=== PATIENT | female | born 1985 | race Hispanic/Latino ===

== ENCOUNTER 2017-04-22 21:39 | Emergency (ER) | payer MEDICAID ==
[2017-04-22 21:39] VITALS: BMI 30.4
[2017-04-22 21:49] VITALS: TEMP 98.8
--- NOTE | 2017-04-22 22:21 | ED PDOC ---
Lower Extremity Pain/Injury Time Seen by Provider: 04/22/17 22:06 Chief Complaint (Nursing): Palpitations Chief Complaint (Provider): leg pain/swelling History Per: Patient History/Exam Limitations: no limitations Onset/Duration Of Symptoms: Days (2) Current Symptoms Are (Timing): Still Present Additional History Per: Patient Additional Complaint(s): 31 y/o female presents for eval of right leg pain x 2 days. Associated palpitations today, with numbness/tingling right hand 5th digit. Patient also feels her feet to be swollen. Denies fever, headache, dizziness, nausea/vomiting , chest pain, shortness of breath, abdominal pain, changes in bowel movements, recent travel, OCP use. Past Medical History Reviewed: Historical Data, Nursing Documentation, Vital Signs Vital Signs: Last Vital Signs Temp 98.8 F 04/22/17 21:47 Pulse 106 H 04/22/17 21:47 Resp 20 04/22/17 21:47 BP 156/93 H 04/22/17 21:47 Pulse Ox 98 04/22/17 21:47 - Medical History PMH: Anxiety, Bipolar Disorder, Depression, Migraine Denies: Diabetes, Hepatitis, HIV, HTN, Chronic Kidney Disease, Seizures, Sexually Transmitted Disease - Surgical History Surgical History: No Surg Hx - Family History Family History: States: Unknown Family Hx - Immunization History Hx Tetanus Toxoid Vaccination: No Hx Influenza Vaccination: No Hx Pneumococcal Vaccination: No - Home Medications Home Medications: Ambulatory Orders Medication Instructions Recorded Cetirizine HCl [All Day Allergy 1 tab PO HS 12/21/15 Relief] Fluticasone Nasal [Flonase] 1 spray INH PRN PRN 12/21/15 Paroxetine HCl [Paxil] 1 tab PO DAILY 12/21/15 Sumatriptan [Imitrex] 1 inh INH PRN PRN 12/21/15 buPROPion XL [Wellbutrin XL] 3 tab PO DAILY 12/21/15 Mirtazapine [Remeron] 15 mg PO HS PRN #15 tab 12/24/15 lamoTRIgine [Lamictal] 25 mg PO DAILY #30 tab 12/24/15 - Allergies Allergies/Adverse Reactions: Allergies Allergy/AdvReac Type Severity Reaction Status Date / Time clams Allergy Mild RASH Verified 04/22/17 21:46 hale Allergy Mild RASH Uncoded 12/21/15 09:49 Review of Systems ROS Statement: Except As Marked, All Systems Reviewed And Found Negative Cardiovascular: Positive for: Palpitations Musculoskeletal: Positive for: Leg Pain Neurological: Positive for: Numbness (right hand) Physical Exam - Reviewed Nursing Documentation Reviewed: Yes Vital Signs Reviewed: Yes - Physical Exam Appears: Positive for: Well, Non-toxic, Uncomfortable (anxious) Head Exam: Positive for: ATRAUMATIC, NORMAL INSPECTION, NORMOCEPHALIC Skin: Positive for: Normal Color Eye Exam: Positive for: Normal appearance ENT: Positive for: Normal ENT Inspection Cardiovascular/Chest: Positive for: Regular Rate, Rhythm Respiratory: Positive for: Normal Breath Sounds Gastrointestinal/Abdominal: Positive for: Normal Exam Back: Positive for: Normal Inspection Extremity: Positive for: Normal ROM, Tenderness (ecchymosis noted proximal right lower leg, distal right upper leg ), Capillary Refill. Negative for: Pedal Edema, Calf Tenderness (Neg damaris's bilaterally), Deformity, Swelling Neurologic/Psych: Positive for: Alert, Oriented. Negative for: Motor/Sensory Deficits - Laboratory Results Result Diagrams: 04/22/17 23:45 04/22/17 23:00 - ECG ECG: Positive for: Viewed By Me (reviewed by ED attending) ECG Rhythm: Positive for: Sinus Tachycardia (103bpm) O2 Sat by Pulse Oximetry: 98 - Progress ED Course And Treament: labs, ekg Patient educated on findings, discharged with instructions to follow up PMD 2-3 days. Advised motrin PRN pain. Return to ED for worsening/concerning symptoms. Disposition - Clinical Impression Clinical Impression: Leg pain, Palpitations, Paresthesia - Patient ED Disposition Is Patient to be Admitted: No Counseled Patient/Family Regarding: Studies Performed, Diagnosis, Need For Followup - Disposition Disposition: Routine/Home Disposition Time: 01:12 Condition: IMPROVED Additional Instructions: Follow up with primary doctor in 2-3 days. Take Ibuprofen as directed, as needed for pain. Return to ED for worsening/concerning symptoms. Instructions: Palpitations (ED), Paresthesia (ED), Leg Pain (ED)
[2017-04-22 23:25] LABS: ALB/GLOB RATIO 1.7 (1.0-2.1); ALBUMIN 4.4 g/dL (3.5-5.0); ALT/SGPT 61 U/L (9-52); AST/SGOT 38 U/L (14-36); BLOOD UREA NITROGEN 9 mg/dl (7-17); GFR AFRICAN-AMERICAN > 60; GFR NON-AFRICAN AMERICAN > 60
[2017-04-22 23:37] LABS: PARTIAL THROMBOPLASTIN TIME 22.8 Seconds (25.6-37.1); PROTHROMBIN TIME 10.9 Seconds (9.8-13.1)
[2017-04-22 23:45] LABS: B-TYPE NATRIURETIC PEPTIDE 66.7 pg/ml (0-450)
[2017-04-22 23:54] LABS: BASO % 0.3 % (0.0-2.0); EOS # 0.2 K/uL (0.0-0.7); EOS % 3.2 % (0.0-4.0); HEMOGLOBIN 12.4 g/dL (12.0-16.0); LYMPH # 1.5 K/uL (1.0-4.3); LYMPH % 24.5 % (20.0-40.0); MEAN CELL VOLUME 90.9 fl (81.0-99.0); MEAN CORPUSCULAR HEMOGLOBIN 30.1 pg (27.0-31.0); MEAN CORPUSCULAR HGB CONC 33.2 g/dL (33.0-37.0); MEAN PLATELET VOLUME 9.1 fl (7.2-11.7); MONO # 0.4 K/uL (0.0-0.8); MONO % 6.5 % (0.0-10.0); NEUT % 65.5 % (50.0-75.0); NRBC % 0.1 % (0.0-0.0); RBC 4.13 Mil/uL (3.80-5.20); RED CELL DISTRIBUTION WIDTH 13.8 % (11.5-14.5); WHITE BLOOD COUNT 6.2 K/uL (4.8-10.8)
[2017-04-23 02:36] VITALS: BP 148/97; PULSE 83; RESP 16; O2SAT 99
== END 2017-04-23 01:40 | disposition home or self-care (01) ==
LOC: H.ER 21:39
DX: F41.9 Anxiety disorder, unspecified (principal); R00.2 Palpitations; R20.2 Paresthesia of skin; F31.9 Bipolar disorder, unspecified

== ENCOUNTER 2017-05-21 05:01 | Observation (INO) | payer MEDICAID ==
[2017-05-21 05:01] VITALS: BMI 30.4
[2017-05-21 05:16] VITALS: O2SAT 98
[2017-05-21] MEDS ORDERED: Lidocaine 2% w Epi 1:100,000 Inj IJ ONE (05:17)
[2017-05-21] MEDS ORDERED: Lidocaine 1% Inj (20ml) ONE ×2 (05:18→05:30)
--- NOTE | 2017-05-21 06:44 | ED PDOC ---
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 Patient states she was drinking and holding a glass jar when she was passed out and fell cutting her leg. She reports on taking multiple sedative medications. PMD: None provided. - Fall Fall:Prior To Injury: Passed Out Past Medical History Reviewed: Historical Data, Nursing Documentation, Vital Signs Vital Signs: Last Vital Signs Temp 97.5 F L 05/21/17 09:11 Pulse 78 05/21/17 09:11 Resp 19 05/21/17 09:11 BP 128/76 05/21/17 09:11 Pulse Ox 98 05/21/17 09:11 - Medical History PMH: Anxiety, Bipolar Disorder, Depression, Migraine Denies: Diabetes, Hepatitis, HIV, HTN, Chronic Kidney Disease, Seizures, Sexually Transmitted Disease - Family History Family History: States: Unknown Family Hx - Immunization History Hx Tetanus Toxoid Vaccination: No Hx Influenza Vaccination: No Hx Pneumococcal Vaccination: No - Home Medications Home Medications: Ambulatory Orders Medication Instructions Recorded Cetirizine HCl [All Day Allergy 1 tab PO HS 12/21/15 Relief] Fluticasone Nasal [Flonase] 1 spray INH PRN PRN 12/21/15 Paroxetine HCl [Paxil] 1 tab PO DAILY 12/21/15 Sumatriptan [Imitrex] 1 inh INH PRN PRN 12/21/15 buPROPion XL [Wellbutrin XL] 3 tab PO DAILY 12/21/15 Mirtazapine [Remeron] 15 mg PO HS PRN #15 tab 12/24/15 lamoTRIgine [Lamictal] 25 mg PO DAILY #30 tab 12/24/15 Cephalexin [cephalexin] 500 mg PO BID #10 cap 05/21/17 - Allergies Allergies/Adverse Reactions: Allergies Allergy/AdvReac Type Severity Reaction Status Date / Time clams Allergy Mild RASH Verified 04/22/17 21:46 hale Allergy Mild RASH Uncoded 12/21/15 09:49 Review of Systems ROS Statement: Except As Marked, All Systems Reviewed And Found Negative Musculoskeletal: Positive for: Leg Pain (Right lower laceration) Physical Exam - Reviewed Nursing Documentation Reviewed: Yes Vital Signs Reviewed: Yes - Physical Exam Appears: Positive for: Well, No Acute Distress. Negative for: Non-toxic ( appears intoxicated ) Head Exam: Positive for: ATRAUMATIC, NORMAL INSPECTION, NORMOCEPHALIC Skin: Positive for: Normal Color, Warm, Dry Eye Exam: Positive for: EOMI, Normal appearance, PERRL ENT: Positive for: Normal ENT Inspection Neck: Positive for: Normal, Painless ROM Cardiovascular/Chest: Positive for: Regular Rate, Rhythm Respiratory: Positive for: CNT, Normal Breath Sounds Pulses-Dorsalis Pedis (L): 2+ Pulses-Dorsalis Pedis (R): 2+ Pulses-Femoral (L): 2+ Pulses-Femoral (R): 2+ Gastrointestinal/Abdominal: Positive for: Normal Exam, Bowel Sounds, Soft Back: Positive for: Normal Inspection Extremity: Positive for: Normal ROM (Full motor strenght on lower extremities), Other (9 cm laceratoin to adams. Linear superficial. Right lower extremity neurovascular intact.) Neurologic/Psych: Positive for: Alert, Oriented - ECG O2 Sat by Pulse Oximetry: 98 (RA) Pulse Ox Interpretation: Normal Medical Decision Making Medical Decision Making: Initial Impression: Laceration secondary to intoxication while taking sedative meds Initial plan: --Head w/o contrast [CT] --Alcohol --Lidocaine/Epinephrine --Accucheck --Tibia Fibula Right [RAD] Scribe Attestation: Documented by Leo Boo, acting as a scribe for Jerrell Garza MD. Provider Scribe Attestation: All medical record entries made by the Scribe were at my direction and personally dictated by me. I have reviewed the chart and agree that the record accurately reflects my personal performance of the history, physical exam, medical decision making, and the department course for this patient. I have also personally directed, reviewed, and agree with the discharge instructions and disposition. Procedures - Time-Out Type of Procedure: Sutures Site of Procedure: Right lower adams Correct Procedure: Yes Physician Name: Dr. Kayla - Laceration/Wound Repair Foot Wound Length (cm): 9 Wound's Depth, Shape: superficial, linear Wound Explored: clean Anesthesia: 1% Lidocaine Wound Repaired With: Sutures Suture Size/Type: 4:0 (vicryl) Number of Sutures: 15 Wound Complexity: Simple ED OBSERVATION Date of observation admission: 05/21/17 Time of observation admission: 07:00 - Observation admission statement Patient is being placed in observation because:: Need for serial examinations to determine stability for disposition - Goals of Observation Goals of observation are:: Resolution of symptoms and clinical sobriety - Progress Note Progress Note: 05/21/17 07:10 Patient remains intoxicated Disposition - Clinical Impression Clinical Impression: Laceration of leg, Head injury, Alcohol intoxication - Disposition Disposition: Transfer of Care Disposition Time: 07:00 Condition: STABLE Patient Signed Over To: Santos Brito III Handoff Comments: pending head CT and sobriety
--- NOTE | 2017-05-21 07:07 | ED PDOC ---
- ECG O2 Sat by Pulse Oximetry: 98 (RA) Pulse Ox Interpretation: Normal Medical Decision Making Medical Decision Makin Patient signed out to co 0700 Disposition - Disposition Forms: [employer] (Swiss)
--- NOTE | 2017-05-21 07:24 | ED PDOC ---
- ECG O2 Sat by Pulse Oximetry: 98 (RA) Pulse Ox Interpretation: Normal Medical Decision Making Medical Decision Making: Time: 07:00 --Patient is signed out by Dr. Jerrell Garza MD to me, pending Head CT and clinical sobriety Time: 07:[address]: FINDINGS: There is no midline shift. The ventricles and sulci are normal. No abnormal area of brain attenuation is seen. No hemorrhage or extra-axial collection is noted. Tiny callosal lipoma. IMPRESSION: No evidence of acute intracranial abnormality. 9am- awake, alert, gait stable. Wants to go home. Roommate (sober) agrees to accompany home for safety. Sutures out in 7-10d. Rx keflex given alcohol abuse , wound care explained and instructions provided. Bacitracin sample provided. Scribe Attestation: Documented by Nafisa Echevarria, acting as a scribe for Santos Brito III, DO Provider Scribe Attestation: All medical record entries made by the Scribe were at my direction and personally dictated by me. I have reviewed the chart and agree that the record accurately reflects my personal performance of the history, physical exam, medical decision making, and the department course for this patient. I have also personally directed, reviewed, and agree with the discharge instructions and disposition. Disposition Counseled Patient/Family Regarding: Studies Performed, Diagnosis, Need For Followup - Clinical Impression Clinical Impression: Laceration of leg, Head injury, Alcohol intoxication - POA Present On Arrival: None - Disposition Disposition: Routine/Home Disposition Time: 09:05 Condition: STABLE
[2017-05-21 08:06] VITALS: PULSE 78
[2017-05-21 09:13] VITALS: BP 128/76; RESP 19; TEMP 97.5
--- NOTE | 2017-05-21 09:24 | CT ---
PROCEDURE: CT HEAD WITHOUT CONTRAST. HISTORY: s/p fall COMPARISON: None available. TECHNIQUE: Axial computed tomography images were obtained through the head/brain without intravenous contrast. Radiation dose: Total exam DLP = 848.44 mGy-cm. This CT exam was performed using one or more of the following dose reduction techniques: Automated exposure control, adjustment of the mA and/or kV according to patient size, and/or use of iterative reconstruction technique. FINDINGS: HEMORRHAGE: No intracranial hemorrhage. BRAIN: No mass effect or edema. No atrophy or chronic microvascular ischemic changes. Small elliptical shaped focus of fat within adjacent to to the right parasagittal aspect of the splenium of the corpus callosum VENTRICLES: Unremarkable. No hydrocephalus. CALVARIUM: No acute calvarial fractures. . PARANASAL SINUSES: Unremarkable as visualized. No significant inflammatory changes. MASTOID AIR CELLS: Unremarkable as visualized. No inflammatory changes. OTHER FINDINGS: None. IMPRESSION: No acute intracranial hemorrhage. Preliminary report provided by overnight radiology service
--- NOTE | 2017-05-21 10:44 | RAD ---
PROCEDURE: TheRadiographs of the right tibia and fibula. HISTORY: s/p fall COMPARISON: None available. TECHNIQUE: Frontal and lateral views obtained. FINDINGS: BONES: No fracture or destructive lesion. JOINT SPACES: Unremarkable. OTHER FINDINGS: None. IMPRESSION: No evidence of acute displaced fracture nor dislocation. If symptoms persist or occult fracture suspected clinically recommend repeat radiographs 5-10 days as most should become radiographically evident in this timeframe.
== END 2017-05-21 09:07 | disposition home or self-care (01) ==
LOC: H.ER 05:01 → H.EROBSV 06:46
PROVIDERS: ADMIT Emergency Medicine; ATTEND Emergency Medicine
DX: S81.811A Laceration without foreign body, right lower leg, initial encounter (principal); W18.30XA Fall on same level, unspecified, initial encounter; Y93.9 Activity, unspecified; Y92.9 Unspecified place or not applicable; S09.90XA Unspecified injury of head, initial encounter; F31.9 Bipolar disorder, unspecified; F41.9 Anxiety disorder, unspecified; F10.129 Alcohol abuse with intoxication, unspecified; Y90.8 Blood alcohol level of 240 mg/100 ml or more; Z91.013 Allergy to seafood; Z91.018 Allergy to other foods; G43.909 Migraine, unspecified, not intractable, without status migrainosus
CPT/HCPCS: 12004; 36415; 70450; 73590; 80320; 82948; 99282; G0378

== ENCOUNTER 2017-05-30 17:09 | Emergency (ER) | payer MEDICAID ==
[2017-05-30 17:09] VITALS: BMI 30.4
[2017-05-30 17:47] VITALS: BP 129/69; PULSE 89; RESP 20; TEMP 98.4; O2SAT 99
--- NOTE | 2017-05-30 18:32 | ED PDOC ---
HPI: Wound Care - HPI Time Seen by Provider: 05/30/17 17:48 Chief Complaint (Nursing): Wound Check Chief Complaint (Provider): Suture removal History Per: Patient Exam Limitations: no limitations Location Of Injury: Right: Knee Severity: None Additional Complaint(s): Blank Elias is a 31 year old female, with a past medical history of anxiety, depression and migraines, who presents to the emergency department for a suture removal from a laceration repair 10 days ago. Patient denies any fever, redness , swelling or discharge to site. No further medical complaints. PMD: Negra Tirado Past Medical History Reviewed: Historical Data, Nursing Documentation, Vital Signs Vital Signs: Last Vital Signs Temp 98.4 F 05/30/17 17:44 Pulse 89 05/30/17 17:44 Resp 20 05/30/17 17:44 BP 129/69 05/30/17 17:44 Pulse Ox 99 05/30/17 17:44 - Medical History PMH: Anxiety, Bipolar Disorder, Depression, Migraine Denies: Diabetes, Hepatitis, HIV, HTN, Chronic Kidney Disease, Seizures, Sexually Transmitted Disease - Family History Family History: States: Unknown Family Hx - Immunization History Hx Tetanus Toxoid Vaccination: No Hx Influenza Vaccination: No Hx Pneumococcal Vaccination: No - Home Medications Home Medications: Ambulatory Orders Medication Instructions Recorded Cetirizine HCl [All Day Allergy 1 tab PO HS 12/21/15 Relief] Fluticasone Nasal [Flonase] 1 spray INH PRN PRN 12/21/15 Paroxetine HCl [Paxil] 1 tab PO DAILY 12/21/15 Sumatriptan [Imitrex] 1 inh INH PRN PRN 12/21/15 buPROPion XL [Wellbutrin XL] 3 tab PO DAILY 12/21/15 Mirtazapine [Remeron] 15 mg PO HS PRN #15 tab 12/24/15 lamoTRIgine [Lamictal] 25 mg PO DAILY #30 tab 12/24/15 Cephalexin [cephalexin] 500 mg PO BID #10 cap 05/21/17 - Allergies Allergies/Adverse Reactions: Allergies Allergy/AdvReac Type Severity Reaction Status Date / Time clams Allergy Mild RASH Verified 05/30/17 17:42 hale Allergy Mild RASH Uncoded 12/21/15 09:49 Review of Systems ROS Statement: Except As Marked, All Systems Reviewed And Found Negative Constitutional: Negative for: Fever Musculoskeletal: Negative for: Other (No redness, swelling or discharge to site) Physical Exam - Reviewed Nursing Documentation Reviewed: Yes Vital Signs Reviewed: Yes - Physical Exam Appears: Positive for: Well, Non-toxic, No Acute Distress Head Exam: Positive for: ATRAUMATIC, NORMAL INSPECTION, NORMOCEPHALIC Skin: Positive for: Normal Color, Warm, DRY Eye Exam: Positive for: Normal appearance Respiratory: Positive for: Normal Breath Sounds. Negative for: Respiratory Distress Extremity: Positive for: Other ([address] to laceration to right lower extremity. No surrounding erythema or edema. Mild ecchymosis) Neurologic/Psych: Positive for: Alert, Oriented - ECG O2 Sat by Pulse Oximetry: 99 (RA) Pulse Ox Interpretation: Normal Medical Decision Making Medical Decision Making: Initial Impression: Suture removal to right knee Initial Plan: 18:20 -Suture removed without difficulty Scribe Attestation: Documented by Leo Boo, acting as a scribe for Megan EVANS. Provider Scribe Attestation: All medical record entries made by the Scribe were at my direction and personally dictated by me. I have reviewed the chart and agree that the record accurately reflects my personal performance of the history, physical exam, medical decision making, and the department course for this patient. I have also personally directed, reviewed, and agree with the discharge instructions and disposition. Disposition - Clinical Impression Clinical Impression: Visit for suture removal, Visit for wound check - Patient ED Disposition Is Patient to be Admitted: No - Disposition Disposition: Routine/Home Disposition Time: 18:41 Condition: STABLE Instructions: Stitches Removal (ED) Forms: [employer] ([place])
== END 2017-05-30 19:31 | disposition home or self-care (01) ==
LOC: H.ER 17:09
DX: Z48.02 Encounter for removal of sutures (principal); F31.9 Bipolar disorder, unspecified; F41.9 Anxiety disorder, unspecified